=== PATIENT | female | born 1945 | race Caucasian/White ===

== ENCOUNTER 2016-11-03 18:00 | Emergency (ER) | payer OTHER ==
--- NOTE | 2016-11-03 19:44 | ED CLINICAL REPORT ---
Clinical Report - Physicians/Mid Levels [facility] [address] [place] [address] 11/03/2016 18:02 [id number] Time Seen: 18:15 Nov 03 2016. Arrived- By private vehicle. HISTORY OF PRESENT ILLNESS Chief Complaint: DYSURIA. This started 3 days and still present. The symptoms are described as mild. The patient has had pelvic pain. She has had pain with urination and urgency of urination. (Patient presents with frequency and urgency over the last 3 days. Recently saw urgent care, the [facility] and was prescribed Macrobid. Patient has been on the antibiotic for the last 2 days. Pt with neck/ back pain. Pain worsens with movement. Neck pain ongoing for 2 weeks, pt takes). REVIEW OF SYSTEMS No vomiting, diarrhea, fever, cough or difficulty breathing. No skin rash or enlarged lymph nodes. All systems otherwise negative, except as recorded above. PAST HISTORY Problems: Back Pain. Additional Surgeries: Eye surg bilat . Hysterectomy. Oophorectomy. ADDITIONAL NOTES The nursing notes have been reviewed. PHYSICAL EXAM Vital Signs: 11/03/2016 18:18 BP: 141/69. HR: 86. RR: 20. O2 saturation: 96%. Temp: 98.5 F. Pain level now: 4/10. Appearance: Alert. Oriented X3. No acute distress. No apparent distress. Does not appear to be anxious. HEENT: Normal external inspection. Neck: No thyromegaly or lymphadenopathy. (no meningeal signs, full rom, no distress, mild inferior tenderness/ laterally). CVS: Heart sounds normal. Rate normal. Rhythm normal. Respiratory: No respiratory distress. Breath sounds normal. No rales. Abdomen: Soft and nontender. Bowel sounds normal. No mass. The bowel sounds are not abnormal. Skin: Skin warm. Normal skin color. Extremities: (b/l trapezius tendernss). LABS, X-RAYS, AND EKG Laboratory Tests: UA-Culture if indicated: (ROSIE: 11/03/2016 18:10) ( MsgRcvd 11/03/2016 19:15) Final results Test Result Flag Units (Reference) URINE COLOR YELLOW URINE APPEARANCE CLEAR URINE GLUCOSE NEGATIVE (NEGATIVE) URINE BILIRUBIN NEGATIVE (NEGATIVE) URINE KETONE NEGATIVE (NEGATIVE) URINE SPECIFIC GRAVITY <= 1.005 L (1.010-1.030) URINE PH 6.0 (5.0-8.0) URINE PROTEIN NEGATIVE (NEGATIVE) URINE UROBILINOGEN 0.2 EU/dL (0.2-1.0) URINE NITRITE NEGATIVE (NEGATIVE) URINE BLOOD TRACE-LYSED (NEGATIVE) URINE LEUK ESTERASE NEGATIVE (NEGATIVE) URINE RBC 0-1 rbc/hpf (0-1) URINE WBC 0-1 wbc/hpf (0-1) URINE EPITHELIAL CELLS 0-1 EPI/hpf (0-5) URINE BACTERIA NONE SEEN (NONE SEEN) URINE COMMENT CULT NOT INDICATED URINE CULTURES ARE SET-UP BASED ON THE FOLLOWING CRITERIA:POSITIVE NITRITEPOSITIVE LEUKOCYTE ESTERASEGREATER THAN 10 WHITE BLOOD CELLSMODERATE (2+) OR GREATER BACTERIA CBC w Diff: (ROSIE: 11/03/2016 18:50) ( [facility] 11/03/2016 19:07) Final results Test Result Flag Units (Reference) WHITE BLOOD COUNT 6.9 K/uL (4.5-11.5) RED BLOOD COUNT 4.00 M/uL (4.00-5.20) HEMOGLOBIN 11.9 L gm/dL (12.0-16.0) HEMATOCRIT 35.3 L % (36.0-46.0) MEAN CELL VOLUME 88 fL (80-100) MEAN CORPUSCULAR HGB 30 pg (26-34) MEAN CORPUSCULAR HGB CONC 34 g/dL (31-37) RED CELL DISTRIBUTION WIDTH 14.4 % (11.6-14.8) PLATELET COUNT 251 K/uL (150-400) NEUTROPHIL % 86.0 H % (50-75) LYMPH % 7.9 L % (25-40) MONO % 4.4 % (3-14) EOSINOPHIL % 1.5 % (0-4) BASOPHIL % 0.2 % (0-2) [id number]: (ROSIE: 11/03/2016 18:50) ( [facility] 11/03/2016 19:42) Final results Test Result Flag Units (Reference) PROCALCITONIN <0.5 ng/mL (0-0.5) PCT Concentration: Interpretation : Risk/option for action PCT <=0.5 ng/mL : Systemic : Low risk forinfection(sepsis): progression to severeis not likely. : systemic infection.Local bacterial : CAUTION-PCT levelsinfection is : below 0.5 ng/mL do notpossible. : exclude an infection,because localizedinfections (withoutsystemic signs) may beassociated with suchlow levels. If PCT ismeasured very earlyafter a bacterialchallenge (usually <6hours), these valuesmay still be low. Inthis case PCT shouldbe re-assessed 6-24hours later. PCT >0.5 and : Systemic infection: Moderate risk for<= 2 ng/mL : (sepsis) is : progression to severepossible, but : systemic infection.other conditions : The patient should beare known to : closely monitoredelevate PCT. : both clinically andby re-assessing PCTwithin 6-24 hours. PCT > 2 ng/mL : Systemic infection: High risk for(sepsis) is likely: progression to severeunless other : systemic infection.causes are known. : PCT >= 10 ng/mL : Important systemic: High likelihood ofinflammatory : severe sepsis orresponse, almost : septic shock.exclusively due to:severe bacterial :sepsis or septic :shock. : CMP: (ROSIE: 11/03/2016 18:50) ( MsgRcvd 11/03/2016 19:26) Final results Test Result Flag Units (Reference) GLUCOSE 98 mg/dL (70-110) BUN 7 mg/dL (7-18) CREATININE 0.7 mg/dL (0.6-1.3) Estimated GFR >60 mL/min Estimated GFR- >60 mL/min Note: Persistent reduction over 3 months in eGFR<60 mL/min/1.73 m2 defines CKD. Patients with eGFR values>=60 mL/min/1.73 m2 may also have CKD if evidence ofpersistent proteinuria. Additional information may be foundat www.kidney.org. SODIUM 137 mmol/L (136-145) POTASSIUM 3.8 mmol/L (3.5-5.1) CHLORIDE 102 mmol/L (98-107) CARBON DIOXIDE 23 mmol/L (21-32) CALCIUM 8.4 L mg/dL (8.5-10.1) TOTAL PROTEIN 6.8 g/dL (6.4-8.2) ALBUMIN 3.4 g/dL (3.3-5.0) BILIRUBIN, TOTAL 1.5 H mg/dL (0.0-1.0) ALKALINE PHOSPHATASE 162 H U/L (46-116) AST (SGOT) 120 H U/L (15-37) ALT (SGPT) 108 H U/L (12-78) . PROGRESS AND PROCEDURES Course of Care: 11/02/16 pt with ua sample, started on macrobid, PROTEUS species, from culture. patient with trapezius tenderness, lateral cervical spine tenderness. Otherwise no distress. Patient with full range of motion of the cervical spine. No recent injuries. I do not suspect meningitis. Patient with no paresthesias. Her UTI is improving. At this time patient will continue Macrobid, which only started an antibiotic yesterday. patient is an everyday drinker, she status post cholecystectomy. She has no epigastric tenderness or pain. Pt stable. To f/u outpatient. URGED her to stop drinking. 11/03/2016 19:40 BP: 122/77. HR: 6. RR: 18. O2 saturation: 100%. Pain level now: 2/10. Patient is stable. Patient/family counseled. Disposition: Discharged. Condition: good. CLINICAL IMPRESSION Acute cervical strain. Elevated LFT. INSTRUCTIONS Drink plenty of fluids. No alcohol. (BILIRUBIN, TOTAL 1.5 H mg/dL (0.0-1.0) ALKALINE PHOSPHATASE 162 H U/L (46-116) AST (SGOT) 120 H U/L (15-37) ALT (SGPT) 108 H U/L (12-78) continue your antibiotic your labs beside your liver function look great). Prescription Medications: Flexeril 10 mg: take 1 orally every 8 hours as needed for muscle spasm. Dispense fifteen (15). No refills. Substitution is permissible. Follow-up: Follow up with your doctor. Call for an appointment. (Electronically signed by Genie Polanco P.A.-C 11/03/2016 20:20)
--- NOTE | 2016-11-03 19:44 | ED ORDER SUMMARY ---
..... Patient: SMOOTH DIXON OrderSheet [facility] VisitID: [id number] [place] [address] 70y, F Registration Date/Time: 11/03/2016 ORDER SHEET Weight: 29.9 kg (stated) Allergies: No Known Drug Allergy GENERAL ORDERS: UA-Culture if indicated Urgent (18:15 11/03/2016 EKoroleva P.A.-C) (Ack 18:16 KHoerner) (18:19 KHoerner) CBC w Diff Urgent (18:37 11/03/2016 EKoroleva P.A.-C) (Ack 18:42 KHoerner) (19:19 ALawrence ER Tech1) CMP Urgent (18:37 11/03/2016 EKoroleva P.A.-C) (Ack 18:42 KHoerner) (19:19 ALawrence ER Tech1) PCT (Procalcitonin) Urgent (18:37 11/03/2016 EKoroleva P.A.-C) (Ack 18:42 KHoerner) (19:19 ALawrence ER Tech1) MEDICATION ORDERS: Valium PO 2.5 mg (HIGH ALERT MEDICATION, NOW) (19:43 11/03/2016 EKoroleva P.A.-C) (Ack 19:44 SRoberts R.N.) (19:47 SRoberts R.N.) IV FLUIDS: ORDER SHEET NOTES: [Electronically signed by Beverly Ya R.N. (19:55 11/03/2016)] [Electronically signed by Genie Polanco P.A.-C (20:20 11/03/2016)] [Electronically locked/signed by Beverly Ya R.N. (19:55 11/03/2016)]
--- NOTE | 2016-11-03 19:44 | ED ORDER SUMMARY ---
..... Patient: SMOOTH DIXON OrderSheet [facility] VisitID: [id number] [place] [address] 70y, F Registration Date/Time: 11/03/2016 ORDER SHEET Weight: 29.9 kg (stated) Allergies: No Known Drug Allergy GENERAL ORDERS: UA-Culture if indicated Urgent (18:15 11/03/2016 EKoroleva P.A.-C) (Ack 18:16 KHoerner) (18:19 KHoerner) CBC w Diff Urgent (18:37 11/03/2016 EKoroleva P.A.-C) (Ack 18:42 KHoerner) (19:19 ALawrence ER Tech1) CMP Urgent (18:37 11/03/2016 EKoroleva P.A.-C) (Ack 18:42 KHoerner) (19:19 ALawrence ER Tech1) PCT (Procalcitonin) Urgent (18:37 11/03/2016 EKoroleva P.A.-C) (Ack 18:42 KHoerner) (19:19 ALawrence ER Tech1) MEDICATION ORDERS: Valium PO 2.5 mg (HIGH ALERT MEDICATION, NOW) (19:43 11/03/2016 EKoroleva P.A.-C) (Ack 19:44 SRoberts R.N.) (19:47 SRoberts R.N.) IV FLUIDS: ORDER SHEET NOTES: [Electronically signed by Beverly Ya R.N. (19:55 11/03/2016)] [Electronically signed by Genie Polanco P.A.-C (20:20 11/03/2016)] [Electronically locked/signed by Beverly Ya R.N. (19:55 11/03/2016)]
--- NOTE | 2016-11-03 19:44 | ED NURSING NOTES ---
Clinical Report - Nurses [facility] [address] [place] [address] 11/03/2016 18:02 Patient: SMOOTH DIXON TRIAGE Triage time 18:18. Acuity: LEVEL 3. Chief Complaint: URGENCY and FREQUENCY and (temp 101.2, upper back and neck pain. Headache, and tense muscles.). Alert. No acute distress. SEPSIS SCREEN: Sepsis Screen: negative. Negative (no infection suspected/documented). --18:37 Beverly Ya R.N. 18:18 11/03/16. BP: 141/69. HR: 86. RR: 20. O2 saturation: 96%. Temp: 98.5 F. Pain level now: 08/08. --18:37 Beverly Ya R.N. 18:18 11/03/16. BP: 141/69. HR: 86. RR: 20. O2 saturation: 96%. Temp: 98.5 F. Pain level now: 08/08. --18:37 Beverly Ya R.N. Weight: 29.9 kg stated. Height/Length: 65 inches Per Patient. BMI: 11. --18:33 Beverly Ya R.N. Medications Macrodantin 100mg day. --19:52 Beverly Ya R.N. Medication/allergy information source: the patient. --18:37 Beverly Ya R.N. Allergies No Known Drug Allergy. --19:52 Beverly Ya R.N. History Arrived by private vehicle. Historian: patient and family. Primary physician ([facility]). This is a recurrent problem. She has had abdominal pain. The pain is described as located in the RLQ. She has had fever (at home). No hematuria or flank pain. Last oral intake by patient was lunch today. 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 (macrodantin 100mg bid, started yesterday.). PAST MEDICAL HX: Immunizations: status is unknown. The patient has had a hysterectomy. SOCIAL HX: Smoker- current status unknown. Alcohol use; consumes beer daily, liquor daily and wine daily. No drug use. No infectious disease exposure. ABUSE ASSESSMENT: No report of abuse. FALL RISK ASSESSMENT: Fall risk assessment completed. No fall risk identified. NUTRITIONAL RISK ASSESSMENT: The nutritional risk assessment revealed no deficiencies. FUNCTIONAL ASSESSMENT: Functional assessment: no impairments noted. LEARNING NEEDS ASSESSMENT: The learning needs assessment revealed no barriers. SKIN INTEGRITY ASSESSMENT: Skin integrity risk assessment completed. No skin integrity risk identified. --18:37 Beverly Ya R.N. PROBLEMS: Back Pain. --18:32 Beverly Ya R.N. ADDITIONAL SURGERIES: Eye surg bilat . Hysterectomy. Oophorectomy. --18:32 Beverly Ya R.N. Cholecystectomy. --19:43 Beverly Ya R.N. Interventions ID band on patient. To room. --18:37 Beverly Ya R.N. PHYSICAL ASSESSMENT Ambulatory to room. Patient gowned. GENERAL / NEURO / PSYCH: Alert. Oriented X 4. Appears anxious. HEENT: Mucous membranes are pink. RESPIRATORY: Respirations not labored. CVS: Capillary refill less than 2 seconds. GI / : Abdominal tenderness in the right lower quadrant. SKIN: Skin is warm and dry. --18:38 Beverly Ya R.N. NURSING PROGRESS NOTES Patient gowned. Head of bed elevated. Two patient identifiers checked. Call light placed in reach. Side rails up x 2. Bed placed in lowest position. Brakes of bed on. Patient ready for evaluation. --18:38 Beverly Ya R.N. 19:47 11/03/2016 Valium (Diazepam) PO 2.5 mg given. Allergies verified, confirmed 5 rights and sedative warning given to the patient. --19:47 Beverly Ya R.N. DISPOSITION / DISCHARGE 19:54 11/03/16. Condition at departure: improved. No learning barriers present. Discharge instructions provided and reviewed with the patient. Reviewed medication(s) side effects, precautions, dosing and course information. Prescription(s) given to the patient. Patient verbalized understanding. Written instructions provided in Armenian. The patient was discharged home and accompanied by spouse. She left the Emergency Department ambulatory and via private vehicle. Spouse driving. Medication list reviewed and validated. --19:54 Beverly Ya R.N. 19:40 11/03/16. BP: 122/77. HR: 6. RR: 18. O2 saturation: 100%. Temp: deferred. Pain level now: 06/10. 18:18 11/03/16. BP: 141/69. HR: 86. RR: 20. O2 saturation: 96%. Temp: 98.5 F. Pain level now: 08/08. --19:54 Beverly Ya R.N. Locked/Released at 11/03/2016 19:55 by Beverly Ya R.N.
--- NOTE | 2016-11-03 19:44 | ED NURSING NOTES ---
Clinical Report - Nurses [facility] [address] [place] [address] 11/03/2016 18:02 Patient: SMOOTH DIXON TRIAGE Triage time 18:18. Acuity: LEVEL 3. Chief Complaint: URGENCY and FREQUENCY and (temp 101.2, upper back and neck pain. Headache, and tense muscles.). Alert. No acute distress. SEPSIS SCREEN: Sepsis Screen: negative. Negative (no infection suspected/documented). --18:37 Beverly Ya R.N. 18:18 11/03/16. BP: 141/69. HR: 86. RR: 20. O2 saturation: 96%. Temp: 98.5 F. Pain level now: 08/08. --18:37 Beverly Ya R.N. 18:18 11/03/16. BP: 141/69. HR: 86. RR: 20. O2 saturation: 96%. Temp: 98.5 F. Pain level now: 08/08. --18:37 Beverly Ya R.N. Weight: 29.9 kg stated. Height/Length: 65 inches Per Patient. BMI: 11. --18:33 Beverly Ya R.N. Medications Macrodantin 100mg day. --19:52 Beverly Ya R.N. Medication/allergy information source: the patient. --18:37 Beverly Ya R.N. Allergies No Known Drug Allergy. --19:52 Beverly Ya R.N. History Arrived by private vehicle. Historian: patient and family. Primary physician ([facility]). This is a recurrent problem. She has had abdominal pain. The pain is described as located in the RLQ. She has had fever (at home). No hematuria or flank pain. Last oral intake by patient was lunch today. 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 (macrodantin 100mg bid, started yesterday.). PAST MEDICAL HX: Immunizations: status is unknown. The patient has had a hysterectomy. SOCIAL HX: Smoker- current status unknown. Alcohol use; consumes beer daily, liquor daily and wine daily. No drug use. No infectious disease exposure. ABUSE ASSESSMENT: No report of abuse. FALL RISK ASSESSMENT: Fall risk assessment completed. No fall risk identified. NUTRITIONAL RISK ASSESSMENT: The nutritional risk assessment revealed no deficiencies. FUNCTIONAL ASSESSMENT: Functional assessment: no impairments noted. LEARNING NEEDS ASSESSMENT: The learning needs assessment revealed no barriers. SKIN INTEGRITY ASSESSMENT: Skin integrity risk assessment completed. No skin integrity risk identified. --18:37 Beverly Ya R.N. PROBLEMS: Back Pain. --18:32 Beverly Ya R.N. ADDITIONAL SURGERIES: Eye surg bilat . Hysterectomy. Oophorectomy. --18:32 Beverly Ya R.N. Cholecystectomy. --19:43 Beverly Ya R.N. Interventions ID band on patient. To room. --18:37 Beverly Ya R.N. PHYSICAL ASSESSMENT Ambulatory to room. Patient gowned. GENERAL / NEURO / PSYCH: Alert. Oriented X 4. Appears anxious. HEENT: Mucous membranes are pink. RESPIRATORY: Respirations not labored. CVS: Capillary refill less than 2 seconds. GI / : Abdominal tenderness in the right lower quadrant. SKIN: Skin is warm and dry. --18:38 Beverly Ya R.N. NURSING PROGRESS NOTES Patient gowned. Head of bed elevated. Two patient identifiers checked. Call light placed in reach. Side rails up x 2. Bed placed in lowest position. Brakes of bed on. Patient ready for evaluation. --18:38 Beverly Ya R.N. 19:47 11/03/2016 Valium (Diazepam) PO 2.5 mg given. Allergies verified, confirmed 5 rights and sedative warning given to the patient. --19:47 Beverly Ya R.N. DISPOSITION / DISCHARGE 19:54 11/03/16. Condition at departure: improved. No learning barriers present. Discharge instructions provided and reviewed with the patient. Reviewed medication(s) side effects, precautions, dosing and course information. Prescription(s) given to the patient. Patient verbalized understanding. Written instructions provided in Pashto. The patient was discharged home and accompanied by spouse. She left the Emergency Department ambulatory and via private vehicle. Spouse driving. Medication list reviewed and validated. --19:54 Beverly Ya R.N. 19:40 11/03/16. BP: 122/77. HR: 6. RR: 18. O2 saturation: 100%. Temp: deferred. Pain level now: 06/10. 18:18 11/03/16. BP: 141/69. HR: 86. RR: 20. O2 saturation: 96%. Temp: 98.5 F. Pain level now: 08/08. --19:54 Beverly Ya R.N. Locked/Released at 11/03/2016 19:55 by Beverly Ya R.N.
--- NOTE | 2016-11-03 20:21 | ED MAR SUMMARY ---
..... Medication Administration Record [facility] [address] [place] [address] Patient: SMOOTH DIXON Visit ID: [id number] 70y, F Weight: 29.9 kg Height/Length: 65 in BMI: 11 ALLERGIES: No Known Drug Allergy Given 19:47 11/03/2016 Beverly Ya R.N. Medication Administered: VALIUM [PO] (DIAZEPAM), Dose: 2.5 mg PO. Medication Ordered: Valium PO 2.5 mg (HIGH ALERT MEDICATION, NOW).
--- NOTE | 2016-11-03 20:21 | ED MED RECONCILIATION SUMMARY ---
Patient: SMOOTH DIXON Medication Reconciliation Report [facility] VisitID: [id number] [address] [place] [address] 70y, F Registration Date/Time: 11/03/2016 Weight: 29.9 kg Height/Length: 65 in. BMI: 11.0 ALLERGIES: No Known Drug Allergy The patient's Home Medications are listed below: THE FOLLOWING MEDICATIONS NEED TO BE RECONCILED: Macrodantin 100mg day The source(s) of the original Home Medication information: patient The following Medications were given to the patient in the Emergency Department: Valium [PO] PO 2.5 mg, administered: 11/03/2016 7:47:00 PM The following Medications were prescribed to the patient: Flexeril 10 mg: take 1 orally every 8 hours as needed for muscle spasm. Dispense fifteen (15). No refills. Substitution is permissible. -- Genie Polanco, POraliaAYenniC
--- NOTE | 2016-11-03 20:21 | ED MED RECONCILIATION SUMMARY ---
Patient: SMOOTH DIXON Medication Reconciliation Report [facility] VisitID: [id number] [address] [place] [address] 70y, F Registration Date/Time: 11/03/2016 Weight: 29.9 kg Height/Length: 65 in. BMI: 11.0 ALLERGIES: No Known Drug Allergy The patient's Home Medications are listed below: THE FOLLOWING MEDICATIONS NEED TO BE RECONCILED: Macrodantin 100mg day The source(s) of the original Home Medication information: patient The following Medications were given to the patient in the Emergency Department: Valium [PO] PO 2.5 mg, administered: 11/03/2016 7:47:00 PM The following Medications were prescribed to the patient: Flexeril 10 mg: take 1 orally every 8 hours as needed for muscle spasm. Dispense fifteen (15). No refills. Substitution is permissible. -- Genie Polanco, POraliaAYenniC
--- NOTE | 2016-11-03 20:21 | ED DISCHARGE INSTRUCTIONS ---
Patient: SMOOTH DIXON General Instructions [facility] VisitID: [id number] [place] [address] 70y, F Registration Date/Time: 11/03/2016 Acute cervical strain. Elevated LFT. INSTRUCTIONS Drink plenty of fluids. No alcohol. (BILIRUBIN, TOTAL 1.5 H mg/dL (0.0-1.0) ALKALINE PHOSPHATASE 162 H U/L (46-116) AST (SGOT) 120 H U/L (15-37) ALT (SGPT) 108 H U/L (12-78) continue your antibiotic your labs beside your liver function look great). Prescription Medications: Flexeril 10 mg: take 1 orally every 8 hours as needed for muscle spasm. Dispense fifteen (15). No refills. Substitution is permissible. Follow-up: Follow up with your doctor. Call for an appointment. ADDITIONAL INFORMATION Neck Sprain Or Strain A sudden force that causes turning or bending of the neck (such as in a car accident) can stretch or tear muscles (strain) and ligaments (sprain) and cause neck pain. Sometimes neck pain occurs after a simple awkward movement. In either case, muscle spasm is commonly present and contributes to the pain. Unless you had a forceful physical injury (for example, a car accident or fall), X-rays are usually not ordered for the initial evaluation of neck pain. If pain continues and dose not respond to medical treatment, X-rays and other tests may be performed at a later time. Home care The following guidelines will help you care for your injury at home: You may feel more soreness and spasm the first few days after the injury. Reduce your activity level until symptoms begin to improve. When lying down, use a comfortable pillow that supports the head and keeps the spine in a neutral position. The position of the head should not be tilted forward or backward. Use ice packs (ice in a plastic bag, wrapped in a towel) to treat acute pain. Apply for 20 minutes every 24 hours during the first two days. Then, begin local heat (hot shower, hot bath or heating pad) andmassageto reduce muscle spasm. Some patients feel best alternating hot and cold treatments, or just staying with one method only. Do what feels the best to you and gives the most relief. You may use acetaminophen or ibuprofen to control pain, unless another pain medicine was prescribed.If you have chronic liver or kidney disease or ever had a stomach ulcer or GI bleeding, talk with your doctor before using these medicines. Follow-up care Follow up with your physician or this facility if your symptoms do not show signs of improvement. Physical therapy may be needed. If you had X-rays today, they didnt show any broken bones, breaks, or fractures. Sometimes fractures dont show up on the first X-ray. Bruises and sprains can sometimes hurt as much as a fracture. These injuries can take time to heal completely. If your symptoms dont improve or they get worse, talk with your doctor. You may need a repeat X-ray. When to seek medical care Get prompt medical attention if any of the following occur: Pain becomes worse or spreads into your arms Weakness or numbness in one or both arms Neck Pain [No Trauma] There are several possible causes of neck pain without injury: You can get a minor ligament sprain or muscle strain from a sudden minor neck movement. Sleeping with your neck in an awkward position can also cause this. Some persons respond to emotional stress by tensing the muscles of their neck, shoulders and upper back. Chronic spasm in these muscles can cause neck pain and sometimes headaches. Gradualwear and tearof the joints in the spine can cause degenerative arthritis.This can be a source of occasional or chronic neck pain. With aging or repeated small injuries to the neck, the spinal disks (the cushions between each spinal bone) may bulge and put pressure on a nearby spinal nerve. This causes tingling, pain or numbness spreading from the neck to the shoulder, arm or hand on one side. Acute neck pain usually gets better in one to two weeks. Neck pain related to disk disease, arthritis in the spinal joints or spinal stenosis (narrowing of the spinal canal) can become chronic and last for months or years. Unless you had a forceful physical injury (for example, a car accident or fall), X-rays are usually not ordered for the initial evaluation of neck pain. If pain continues and does not respond to medical treatment, x-rays and other tests may be performed at a later time. Home Care: Rest and relax the muscles. Use a comfortable pillow that supports the head and keeps the spine in a neutral position. The position of the head should not be tilted forward or backward. A rolled up towel may help for a custom fit. Some persons find relief with heat (hot shower, hot bath or heating pad) and massage, while others prefer cold packs (crushed or cubed ice in a plastic bag, wrapped in a towel) . Try both and use the method that feels best for 20 minutes several times a day. You may use acetaminophen (Tylenol) or ibuprofen (Motrin, Advil) to control pain, unless another medicine was prescribed. [ NOTE : If you have chronic liver or kidney disease or ever had a stomach ulcer or GI bleeding, talk with your doctor before using these medicines.] Follow Up with your physician or this facility if your symptoms do not show signs of improvement after one week. Physical therapy or further tests may be needed. [NOTE: A radiologist will review any X-rays or CT scans that were taken. We will notify you of any new findings that may affect your care.] Get Prompt Medical Attention if any of the following occur: Pain becomes worse or spreads into one or both arms Weakness or numbness in one or both arms Increasing headache Neck swelling, difficulty or painful swallowing Fever of 100.4F (38C) or higher, or as directed by your healthcare provider Cyclobenzaprine Hydrochloride Oral tablet What is this medicine? CYCLOBENZAPRINE (titi luna) is a muscle relaxer. It is used to treat muscle pain, spasms, and stiffness. How should I use this medicine? Take this medicine by mouth with a glass of water. Follow the directions on the prescription label. If this medicine upsets your stomach, take it with food or milk. Take your medicine at regular intervals. Do not take it more often than directed. Talk to your manpower development specialist manager regarding the use of this medicine in children. Special care may be needed. What side effects may I notice from receiving this medicine? Side effects that you should report to your doctor or health primary care nurse practitioner as soon as possible: allergic reactions like skin rash, itching or hives, swelling of the face, lips, or tongue chest pain fast heartbeat hallucinations seizures vomiting Side effects that usually do not require medical attention (report to your doctor or health primary care nurse practitioner if they continue or are bothersome): headache What may interact with this medicine? Do not take this medicine with any of the following medications: cisapride droperidol flecainide grepafloxacin halofantrine levomethadyl MAOIs like Carbex, Eldepryl, Marplan, Nardil, and Parnate nilotinib pimozide probucol sertindole This medicine may also interact with the following medications: abarelix alcohol contrast dyes dolasetron guanethidine medicines for cancer medicines for depression, anxiety, or psychotic disturbances medicines to treat an irregular heartbeat medicines used for sleep or numbness during surgery or procedure methadone octreotide ondansetron palonosetron phenothiazines like chlorpromazine, mesoridazine, prochlorperazine, thioridazine some medicines for infection like alfuzosin, chloroquine, clarithromycin, levofloxacin, mefloquine, pentamidine, troleandomycin tramadol vardenafil What if I miss a dose? If you miss a dose, take it as soon as you can. If it is almost time for your next dose, take only that dose. Do not take double or extra doses. Where should I keep my medicine? Keep out of the reach of children. Store at room temperature between 15 and 30 degrees C (59 and 86 degrees F). Keep container tightly closed. Throw away any unused medicine after the expiration date. What should I tell my health care provider before I take this medicine? They need to know if you have any of these conditions: heart disease, irregular heartbeat, or previous heart attack liver disease thyroid problem an unusual or allergic reaction to cyclobenzaprine, tricyclic antidepressants, lactose, other medicines, foods, dyes, or preservatives or trying to get breast-feeding What should I watch for while using this medicine? Check with your doctor or health primary care nurse practitioner if your condition does not improve within 1 to 3 weeks. You may get drowsy or dizzy when you first start taking the medicine or change doses. Do not drive, use machinery, or do anything that may be dangerous until you know how the medicine affects you. Stand or sit up slowly. Your mouth may get dry. Drinking water, chewing sugarless gum, or sucking on hard candy may help. You have been given the following additional information: Neck Sprain/Strain Neck Pain, No Trauma Cyclobenzaprine Hydrochloride Oral tablet (Electronically signed by Genie Polanco P.A.-C 11/03/2016 20:20)
--- NOTE | 2016-11-03 20:21 | ED MAR SUMMARY ---
..... Medication Administration Record [facility] [address] [place] [address] Patient: SMOOTH DIXON Visit ID: [id number] 70y, F Weight: 29.9 kg Height/Length: 65 in BMI: 11 ALLERGIES: No Known Drug Allergy Given 19:47 11/03/2016 Beverly Ya R.N. Medication Administered: VALIUM [PO] (DIAZEPAM), Dose: 2.5 mg PO. Medication Ordered: Valium PO 2.5 mg (HIGH ALERT MEDICATION, NOW).
== END 2016-11-03 19:50 | disposition home or self-care (01) ==
LOC: ED SRH 18:00
DX: S16.1XXA Strain of muscle, fascia and tendon at neck level, initial encounter (principal); R94.5 Abnormal results of liver function studies; X58.XXXA Exposure to other specified factors, initial encounter
CPT/HCPCS: 90004; 90074; 90100; 93004; 95059